=== PATIENT | female | born 1945 | race Caucasian/White ===

== ENCOUNTER 2018-01-23 16:35 | Emergency (ER) | payer OTHER ==
[~2018-01-23] VITALS: Ht 167.6 cm; Wt 89.4 kg
[2018-01-23] MEDS ORDERED: FLEET ENEMA(ADULT) 135 ML PR ONE (18:15)
[2018-01-23 19:30] VITALS: BP 141/76
== END 2018-01-23 20:34 | disposition home or self-care (01) ==
LOC: ER 16:35
DX: K80.20 Calculus of gallbladder without cholecystitis without obstruction (principal); K59.00 Constipation, unspecified
CPT/HCPCS: 74018

== ENCOUNTER 2021-08-31 14:45 | Inpatient (IN) | payer OTHER ==
[~2021-08-31] VITALS: Ht 170.2 cm; Wt 113.4 kg
[2021-08-31] MEDS ORDERED: FLEET ENEMA(ADULT) 135 ML PR ONE (15:15)
[2021-08-31] MEDS ORDERED: DOCUSATE SOD 100 MG CAP PO ONE (15:15)
[2021-08-31 17:07] LABS: Basophils # (auto) 0.2 10 ^3/uL (0-0.2); Basophils % (auto) 1.2 % (0.0-2.0); Eosinophils # (auto) 0.1 10 ^3/uL (0-0.8); Eosinophils % (auto) 0.5 % (0.0-7.0); Hematocrit 41.2 % (36.0-46.0); Hemoglobin 13.5 g/dL (12.2-16.2); Lymphocytes # (auto) 1.4 10 ^3/uL (0.4-5.4); Lymphocytes % (auto) 10.5 % (10.0-50.0); Mean Corpuscular Hemoglobin 29.3 pg (28.0-32.0); Mean Corpuscular Hgb Conc. 32.7 g/dL (32.0-36.0); Mean Corpuscular Volume 89.8 fL (80.0-100.0); Monocytes # (auto) 0.6 10 ^3/uL (0-1.3); Monocytes % (auto) 4.4 % (0.0-12.0); Neutrophils # (auto) 11.1 10 ^3/uL (1.6-8.6); Neutrophils % (auto) 83.4 % (37.0-80.0); Red Blood Cells 4.59 10^6/uL (4.0-5.20); Red Cell Distribution Width 13.6 % (11.8-14.3); White Blood Cell 13.3 10^3/uL (4.4-10.8)
[2021-08-31 17:12] LABS: Albumin 3.7 g/dL (3.4-5.0); BUN/Creatinine Ratio 15.6; Calcium 8.6 mg/dL (8.5-10.1); Potassium 3.4 mmol/L (3.5-5.1)
[2021-08-31] MEDS ORDERED: LEVO-28 PO (17:13)
[2021-08-31 17:14] LABS: Bilirubin, Total 0.4 mg/dL (0.2-1.0)
[2021-08-31 17:15] LABS: Total Protein 7.1 g/dL (6.4-8.2)
[2021-08-31] MEDS ORDERED: POTASSIUM EFFERVESENT TAB 25 MEQ PO ONE (17:30)
[2021-09-01 04:48] LABS: Urine WBC None Seen /hpf (0 - 5)
[2021-09-01 05:15] LABS: Urine Bacteria NONE SEEN /hpf (None Seen); Urine Blood Negative /uL (Negative); Urine Specific Gravity 1.008 (1.001-1.035)
[2021-09-01] MEDS ORDERED: ACETAMINOPHEN 325 MG TAB PO PRN (06:00)
[2021-09-01] MEDS ORDERED: InsuLIN REG 1unit/0.01ml Soln (100units/ml) SC SCH (06:00)
[2021-09-01] MEDS ORDERED: ACCU-CHEK COMFORT CURVE STRIP VI SCH (06:00)
[2021-09-01] MEDS ORDERED: ONDANSETRON HCL 4 MG/2 ML VIAL IV PRN (06:00)
[2021-09-01] MEDS ORDERED: FUROSEMIDE 20 MG TAB PO SCH (06:00)
[2021-09-01] MEDS ORDERED: cloNIDine HCL 0.1 MG TAB PO PRN (06:00)
[2021-09-01] MEDS ORDERED: DEXTROSE (50%) 50ML SYRG IV PRN (06:00)
[2021-09-01] MEDS ORDERED: TEMAZEPAM 15 MG CAP PO PRN (06:00)
[2021-09-01] MEDS ORDERED: LEVOTHYROXINE SODIUM 25 MCG TAB PO SCH (07:00)
[2021-09-01] MEDS ORDERED: FLEET ENEMA(ADULT) 135 ML PR ONE (09:45)
[2021-09-01] MEDS ORDERED: POLYETHYLENE GLYCOL 17 GM PWDR PO PRN (09:45)
[2021-09-01] MEDS ORDERED: POTASSIUM EFFERVESENT TAB 25 MEQ PO ONE (10:00)
[2021-09-01] MEDS ORDERED: POTASSIUM CHL 10 Meq TABLET PO SCH (10:00)
[2021-09-01] MEDS ORDERED: DOCU-94 PO (10:34)
[2021-09-01 12:00] VITALS: BP 119/47
== END 2021-09-01 12:12 | disposition home or self-care (01) | DRG 392 ==
LOC: ER 14:45 → EDUNIT# 14:45 → EDBD 14:45 → OVERFLOW 09-01 05:59
PROVIDERS: ADMIT Nurse Practitioner; ATTEND Internal Medicine
DX: K59.00 Constipation, unspecified (principal); N30.00 Acute cystitis without hematuria; K62.89 Other specified diseases of anus and rectum; N30.90 Cystitis, unspecified without hematuria; J40 Bronchitis, not specified as acute or chronic; K80.20 Calculus of gallbladder without cholecystitis without obstruction; E87.6 Hypokalemia; E03.9 Hypothyroidism, unspecified; E66.9 Obesity, unspecified; Z20.822 Contact with and (suspected) exposure to COVID-19; E11.8 Type 2 diabetes mellitus with unspecified complications; I10 Essential (primary) hypertension; I25.10 Atherosclerotic heart disease of native coronary artery without angina pectoris; Z88.0 Allergy status to penicillin; Z88.2 Allergy status to sulfonamides; Z90.711 Acquired absence of uterus with remaining cervical stump; Z68.39 Body mass index [BMI] 39.0-39.9, adult
CPT/HCPCS: 36415; 70450; 74176; 80053; 81001; 82962; 84132; 84484; 85025; 96372; G0378; J1815

== ENCOUNTER 2022-03-11 14:33 | Inpatient (IN) | payer OTHER ==
[~2022-03-11] VITALS: Ht 167.6 cm; Wt 80.0 kg
[~2022-03-11 14:33] MED LIST: DOCU-94 PO; LEVO-28 PO
[2022-03-11] MEDS ORDERED: ASPirin 325 MG TAB PO ONE (15:00)
[2022-03-11] MEDS ORDERED: NITROGLYCERIN 0.4 MG SL TAB SL ONE (15:00)
[2022-03-11 15:08] LABS: Basophils # (auto) 0 10 ^3/uL (0-0.2); Basophils % (auto) 0.4 % (0.0-2.0); Eosinophils # (auto) 0.2 10 ^3/uL (0-0.8); Eosinophils % (auto) 1.8 % (0.0-7.0); Hematocrit 44.5 % (36.0-46.0); Hemoglobin 14.6 g/dL (12.2-16.2); Lymphocytes # (auto) 2.9 10 ^3/uL (0.4-5.4); Lymphocytes % (auto) 26.2 % (10.0-50.0); Mean Corpuscular Hemoglobin 30.5 pg (28.0-32.0); Mean Corpuscular Hgb Conc. 32.9 g/dL (32.0-36.0); Mean Corpuscular Volume 92.7 fL (80.0-100.0); Monocytes # (auto) 0.7 10 ^3/uL (0-1.3); Monocytes % (auto) 6.6 % (0.0-12.0); Neutrophils # (auto) 7.1 10 ^3/uL (1.6-8.6); Nucleated Red Blood Cells % 0.1 %; Red Blood Cells 4.79 10^6/uL (4.0-5.20); Red Cell Distribution Width 13.5 % (11.8-14.3)
[2022-03-11 15:24] LABS: Calcium 9.6 mg/dL (8.5-10.1); INR 0.95 (0.9-1.15); Partial Thromboplastin Time 27.4 sec (24.6-33.4); Potassium 3.9 mmol/L (3.5-5.1)
[2022-03-11 15:28] LABS: Albumin 3.8 g/dL (3.4-5.0); BUN/Creatinine Ratio 26.1
[2022-03-11 15:36] LABS: Bilirubin, Total 0.5 mg/dL (0.2-1.0); Total Protein 7.3 g/dL (6.4-8.2)
[2022-03-11] MEDS ORDERED: MORPHINE SULFATE INJ 2 MG/ml SYRG IV PRN (21:15)
[2022-03-11] MEDS ORDERED: NITROGLYCERIN 0.4 MG SL TAB SL PRN (21:15)
[2022-03-11] MEDS ORDERED: ACETAMINOPHEN 325 MG TAB PO PRN (21:15)
[2022-03-11] MEDS ORDERED: ONDANSETRON HCL 4 MG/2 ML VIAL IV PRN (21:15)
[2022-03-11] MEDS ORDERED: TEMAZEPAM 15 MG CAP PO PRN (21:15)
[2022-03-11] MEDS ORDERED: DEXTROSE (50%) 50ML SYRG IV PRN (21:15)
[2022-03-11] MEDS: ACCU-CHEK COMFORT CURVE STRIP VI SCH (23:25)
[2022-03-11] MEDS: ATORVASTATIN 20 MG TAB PO SCH (23:29)
[2022-03-11] MEDS: InsuLIN REG 1unit/0.01ml Soln (100units/ml) SC SCH (23:35)
[2022-03-12] MEDS: LEVOTHYROXINE SODIUM 25 MCG TAB PO SCH (08:04)
[2022-03-12] MEDS: FUROSEMIDE 20 MG TAB PO SCH ×2 (08:05→18:56)
[2022-03-12] MEDS: ACCU-CHEK COMFORT CURVE STRIP VI SCH ×4 (08:06→22:46)
[2022-03-12] MEDS: InsuLIN REG 1unit/0.01ml Soln (100units/ml) SC SCH ×4 (08:16→22:56)
[2022-03-12] MEDS: ENOXAPARIN SOD 40 MG/0.4 ML SYRINGE SC SCH (09:34)
[2022-03-12] MEDS: ASPirin 81 mg TAB PO SCH (09:37)
[2022-03-12] MEDS: LOSARTAN POTASSIUM 50 MG TAB PO SCH (09:39)
[2022-03-12 14:06] LABS: Basophils # (auto) 0 10 ^3/uL (0-0.2); Basophils % (auto) 0.5 % (0.0-2.0); Eosinophils # (auto) 0.2 10 ^3/uL (0-0.8); Eosinophils % (auto) 2.6 % (0.0-7.0); Hematocrit 40.8 % (36.0-46.0); Hemoglobin 13.3 g/dL (12.2-16.2); Lymphocytes # (auto) 2.3 10 ^3/uL (0.4-5.4); Lymphocytes % (auto) 26.2 % (10.0-50.0); Mean Corpuscular Hemoglobin 30.2 pg (28.0-32.0); Mean Corpuscular Hgb Conc. 32.5 g/dL (32.0-36.0); Mean Corpuscular Volume 92.7 fL (80.0-100.0); Monocytes # (auto) 0.6 10 ^3/uL (0-1.3); Monocytes % (auto) 6.4 % (0.0-12.0); Neutrophils # (auto) 5.8 10 ^3/uL (1.6-8.6); Neutrophils % (auto) 64.3 % (37.0-80.0); Red Cell Distribution Width 13.5 % (11.8-14.3)
[2022-03-12 14:20] LABS: Calcium 9.1 mg/dL (8.5-10.1)
[2022-03-12] MEDS ORDERED: LORazepam 2MG/ML-1ML VIAL IV PRN (19:30)
[2022-03-12] MEDS: ATORVASTATIN 20 MG TAB PO SCH (22:58)
[2022-03-13] MEDS: ACCU-CHEK COMFORT CURVE STRIP VI SCH ×3 (06:47→17:20)
[2022-03-13] MEDS: InsuLIN REG 1unit/0.01ml Soln (100units/ml) SC SCH ×3 (07:01→17:25)
[2022-03-13] MEDS: LEVOTHYROXINE SODIUM 25 MCG TAB PO SCH (07:05)
[2022-03-13] MEDS: FUROSEMIDE 20 MG TAB PO SCH ×2 (07:05→17:32)
[2022-03-13] MEDS: ENOXAPARIN SOD 40 MG/0.4 ML SYRINGE SC SCH (10:00)
[2022-03-13] MEDS: LOSARTAN POTASSIUM 50 MG TAB PO SCH (10:45)
[2022-03-13] MEDS: ASPirin 81 mg TAB PO SCH (10:45)
[2022-03-13 10:47] VITALS: BP 125/63
[2022-03-13 10:54] VITALS: BP 125/63
[2022-03-13 13:50] VITALS: BP 107/56
[2022-03-13] MEDS ORDERED: FURO20TA3 PO (13:55)
[2022-03-13] MEDS ORDERED: GLIP5TAB12 PO (13:55)
[2022-03-13] MEDS ORDERED: POTA10TA51 PO (13:56)
[2022-03-13] MEDS ORDERED: LOSA-69 PO (13:56)
[2022-03-13 16:33] VITALS: BP 122/53
[2022-03-13 18:09] VITALS: BP 122/53
== END 2022-03-13 20:00 | disposition home or self-care (01) | DRG 204 ==
LOC: ER 14:33 → TELE 21:08 → TELE-WESTW 03-13 10:51
PROVIDERS: ADMIT Nurse Practitioner; ATTEND Internal Medicine
DX: R07.81 Pleurodynia (principal); I25.110 Atherosclerotic heart disease of native coronary artery with unstable angina pectoris; E03.9 Hypothyroidism, unspecified; E11.40 Type 2 diabetes mellitus with diabetic neuropathy, unspecified; I10 Essential (primary) hypertension; K44.9 Diaphragmatic hernia without obstruction or gangrene; Z53.20 Procedure and treatment not carried out because of patient's decision for unspecified reasons; K21.9 Gastro-esophageal reflux disease without esophagitis; R51.9 Headache, unspecified; R91.8 Other nonspecific abnormal finding of lung field; Z20.822 Contact with and (suspected) exposure to COVID-19; Z88.0 Allergy status to penicillin; Z90.710 Acquired absence of both cervix and uterus
CPT/HCPCS: 36415; 71045; 71250; 80048; 80053; 82962; 84484; 85025; 85379; 85610; 85730; 87426; 93005; 93306; G0378; J1815